=== PATIENT | female | born 1990 | race Hispanic/Latino ===

== ENCOUNTER 2017-03-15 17:43 | Emergency (ER) | payer MEDICAID ==
[2017-03-15 17:59] LABS: APPEARANCE,URINE Clear (CLEAR); BILIRUBIN,URINE Negative (NEGATIVE); COLOR,URINE Yellow (YELLOW); GLUCOSE, URINE (UA) Negative (NEGATIVE); KETONES,URINE Trace mg/dL (NEGATIVE); LEUKOCYTE ESTERASE ,URINE Negative (NEGATIVE); NITRATE,URINE Negative (NEGATIVE); OCCULT BLOOD,URINE Small (NEGATIVE); PROTEIN,URINE Negative (NEGATIVE)
[2017-03-15 18:02] LABS: HCG,QUAL RESULT NEGATIVE (NEGATIVE)
[2017-03-15 18:08] LABS: BACTERIA,URINE Rare /HPF (None Seen); MUCUS,URINE Many LPF (None Seen); RBC,URINE 0-1 /HPF (0-1); WBC,URINE None Seen /HPF (0-1)
[2017-03-15] MEDS ORDERED: KETOROLAC TROMETHAMINE 60 MG/2 ML VIAL ONE (18:29)
[2017-03-15] MEDS ORDERED: DEXAMETHASONE SOD PHOSPHATE 10MG/ML 1ML VIAL ONE (18:29)
== END 2017-03-15 18:48 | disposition home or self-care (01) ==
LOC: EDH 17:43
DX: M54.5 Low back pain (principal); J10.1 Influenza due to other identified influenza virus with other respiratory manifestations; Z98.890 Other specified postprocedural states
CPT/HCPCS: 81001; 81025; 96372 ×2; 99284; J1100; J1885

== ENCOUNTER 2018-01-27 16:48 | Emergency (ER) | payer MEDICAID ==
[2018-01-27 17:10] LABS: APPEARANCE,URINE SL CLOUDY (CLEAR); BILIRUBIN,URINE NEGATIVE (NEGATIVE); COLOR,URINE YELLOW (YELLOW); GLUCOSE, URINE (UA) NEGATIVE (NEGATIVE); KETONES,URINE NEGATIVE (NEGATIVE); LEUKOCYTE ESTERASE ,URINE NEGATIVE (NEGATIVE); NITRATE,URINE NEGATIVE (NEGATIVE); OCCULT BLOOD,URINE SMALL (NEGATIVE); PH,URINE 6.5 (5.0-8.0); PROTEIN,URINE NEGATIVE (NEGATIVE)
[2018-01-27 17:24] LABS: HCG,QUAL RESULT NEGATIVE (NEGATIVE)
[2018-01-27 17:41] LABS: BACTERIA,URINE Few /HPF (None Seen); MUCUS,URINE Few LPF (None Seen); RBC,URINE None Seen /HPF (0-1)
[2018-01-27 17:55] LABS: BASOPHILS % (AUTO) 0.4 % (0.0-5.0); EOSINOPHILS % (AUTO) 0.9 % (0.0-8.0); HEMATOCRIT 37.5 % (36-48); LYMPHOCYTES % (AUTO) 20.2 % (21.0-51.0); MEAN CORPUSCULAR HEMOGLOBIN 28.7 pg (27.0-33.0); MEAN CORPUSCULAR HGB CONC 32.1 g/dL (32.0-36.0); MEAN CORPUSCULAR VOLUME 89.2 fL (79-99); MONOCYTES % (AUTO) 5.3 % (3.0-13.0); NEUTROPHILS % (AUTO) 73.2 % (40.0-77.0); NUCLEATED RED BLOOD CELLS 0.1 % (0.0-0.19); PLATELET COUNT (AUTO) 233 K/uL (130-400); RED BLOOD CELL COUNT(AUTO) 4.21 MIL/uL (4.00-5.50); RED CELL DISTRIBUTION WIDTH 13.9 % (11.0-15.5); WHITE BLOOD COUNT (AUTO) 9.4 K/uL (4.8-10.8)
[2018-01-27 18:06] LABS: CREATININE 0.8 mg/dL (0.5-1.5); POTASSIUM 3.8 mmol/L (3.5-5.1)
[2018-01-27 18:10] LABS: ALBUMIN 3.7 g/dL (3.5-5.0); BILIRUBIN,TOTAL 0.3 mg/dL (0.2-1.0); TOTAL PROTEIN, SERUM 7.4 g/dL (6.0-8.3)
[2018-01-27] MEDS ORDERED: KETOROLAC TROMETHAMINE 30MG/ML ONE (19:08)
== END 2018-01-27 20:00 | disposition home or self-care (01) ==
LOC: EDH 16:48
DX: S39.011A Strain of muscle, fascia and tendon of abdomen, initial encounter (principal); R11.0 Nausea; F41.9 Anxiety disorder, unspecified; Z79.899 Other long term (current) drug therapy; X58.XXXA Exposure to other specified factors, initial encounter; Y93.89 Activity, other specified; Y92.89 Other specified places as the place of occurrence of the external cause; Y99.8 Other external cause status
CPT/HCPCS: 36415; 74176; 80053; 81001; 81025; 83690; 85025; 96372; 99285; J1885

== ENCOUNTER 2019-01-24 17:15 | Emergency (ER) | payer MEDICAID, OTHER ==
[2019-01-24] MEDS ORDERED: IBUPROFEN 600 MG TABLET ONE (18:00)
== END 2019-01-24 18:21 | disposition home or self-care (01) ==
LOC: EDH 17:15
DX: M62.830 Muscle spasm of back (principal); M54.6 Pain in thoracic spine; F41.9 Anxiety disorder, unspecified; V59.50XA Passenger in pick-up truck or van injured in collision with unspecified motor vehicles in traffic accident, initial encounter; Y93.9 Activity, unspecified; Y92.9 Unspecified place or not applicable; Y99.9 Unspecified external cause status

== ENCOUNTER 2019-03-20 16:24 | Emergency (ER) | payer OTHER ==
[2019-03-20 18:53] LABS: APPEARANCE,URINE Clear (CLEAR); BILIRUBIN,URINE Negative (NEGATIVE); COLOR,URINE Yellow (YELLOW); GLUCOSE, URINE (UA) Negative (NEGATIVE); KETONES,URINE Negative (NEGATIVE); LEUKOCYTE ESTERASE ,URINE Moderate (NEGATIVE); NITRATE,URINE Negative (NEGATIVE); OCCULT BLOOD,URINE Small (NEGATIVE); PH,URINE 7.5 (5.0-8.0); PROTEIN,URINE Negative (NEGATIVE)
[2019-03-20 19:13] LABS: HCG,QUAL RESULT NEGATIVE (NEGATIVE)
[2019-03-20 19:16] LABS: BACTERIA,URINE Few /HPF (None Seen)
[2019-03-20] MEDS ORDERED: CEFTRIAXONE SODIUM 1 GM ONE (19:34)
[2019-03-20] MEDS ORDERED: LIDOCAINE HCL-MPF 1% 2ML VIAL ONE (19:34)
== END 2019-03-20 19:58 | disposition home or self-care (01) ==
LOC: EDH 16:24
DX: N39.0 Urinary tract infection, site not specified (principal); F41.9 Anxiety disorder, unspecified; Z90.49 Acquired absence of other specified parts of digestive tract
CPT/HCPCS: 81001; 81025; 96372; 99284; J0696; J3490

== ENCOUNTER 2024-03-08 09:22 | Emergency (ER) | payer BC, MEDICAID ==
[~2024-03-08] VITALS: Ht 157.5 cm; Wt 79.4 kg
[2024-03-08 10:24] LABS: BASOPHILS # (AUTO) 0.02 K/uL (0.00-0.20); BASOPHILS % (AUTO) 0.1 % (0.0-5.0); EOSINOPHILS # (AUTO) 0.14 K/uL (0.00-0.70); HEMATOCRIT 41.4 % (36-48); IMMATURE GRANULOCYTE ABSOLUTE 0.05 K/uL (0-1); LYMPHOCYTES # (AUTO) 0.9 K/uL (1.0-4.8); LYMPHOCYTES % (AUTO) 6.7 % (21.0-51.0); MEAN CORPUSCULAR HGB CONC 31.4 g/dL (32.0-36.0); MEAN CORPUSCULAR VOLUME 89.2 fL (79-99); MONOCYTES # (AUTO) 0.7 K/uL (0.1-1.0); MONOCYTES % (AUTO) 4.9 % (3.0-13.0); NEUTROPHILS % (AUTO) 86.9 % (40.0-77.0); PLATELET COUNT (AUTO) 316 K/uL (130-400); RED BLOOD CELL COUNT(AUTO) 4.64 MIL/uL (4.00-5.50); RED CELL DISTRIBUTION WIDTH 13.1 % (11.0-15.5); WHITE BLOOD COUNT (AUTO) 13.8 K/uL (4.8-10.8)
[2024-03-08 10:44] LABS: CREATININE 0.9 mg/dL (0.5-1.0); POTASSIUM 3.5 mmol/L (3.5-5.1)
[2024-03-08 11:05] LABS: ALBUMIN 3.8 g/dL (3.5-5.0); BILIRUBIN,DIRECT 0.1 mg/dL (0.0-0.3); BILIRUBIN,TOTAL 0.5 mg/dL (0.2-1.0); TOTAL PROTEIN, SERUM 8.2 g/dL (6.0-8.3)
[2024-03-08] MEDS ORDERED: AZIT250T9 PO (12:53)
[2024-03-08] MEDS ORDERED: ONDA-243 PO (12:53)
[2024-03-08] MEDS ORDERED: FAMO-136 PO (12:53)
--- NOTE | 2024-03-08 12:56 | ERN ---
General Chief Complaint: Abdominal Pain Stated Complaint: ABDOMINAL PAIN, VOMITING, DIARRHEA Time Seen by MD: 10:16 Time Seen by Midlevel: 10:16 Source: patient History of Present Illness Initial Comments Patient is a 33-year-old female presenting to the emergency department with diffuse abdominal pain with associated nausea, vomiting, and diarrhea that has been ongoing for the last couple of days. Patient states there was one more family member in her household that is sick with similar symptoms. Denies any fever, chills, or any other symptoms at this time. Denies any bloody stools. Denies any past medical/surgical history. Allergies: Coded Allergies: No Known Drug Allergies (Unverified Allergy, Unknown, 03/20/19) Past Medical History Past Medical History: No Pertinent History Past Surgical History: None Female( History) LMP: Feb 07, 2024 : 4 Para: 3 Aborts: 1 ROS Dictation CONSTITUTIONAL: Negative except for HPI HEAD/FACE: Negative except for HPI EENT: Negative except for HPI RESPIRATORY: Negative except for HPI GASTROINTESTINAL/ABDOMINAL: Negative except for HPI GENITOURINARY: Negative except for HPI MUSCULOSKELETAL: Negative except for HPI INTEGUMENTARY: Negative except for HPI NEUROLOGICAL/PSYCH: Negative except for HPI HEMATOLOGIC/LYMPHATIC: Negative except for HPI All Systems Negative, Except as noted above. 13 point review of systems assessed and all negative except for above. Physical Exam Physical Exam Dictation Vital Signs reviewed General Appearance: Alert, oriented x 3, no acute distress, well developed, nourished. Head and Face: non-traumatic. Eyes: PERRL, pink conjunctivas, eyelid no trauma, anterior chamber with arcus senilis. Ears: Pinnas intact and no signs of trauma or erythema ear canals clear and no discharge TM no erythema Nose: No discharge, no bleeding. Oropharynx: Mouth normal, tongue pink, pharynx clear,no erythema, tonsils no exudates, no abscesses noted, mucous membrane moist Neck: Supple, non-tender, no thyromegaly, no masses, no JVD, no bruits Breast:Deferred Chest:No tenderness, no crepitus, no paradoxical movement, no retractions Lungs:Clear, well-ventilated, symmetric, no rales, no wheezing, no rhonchi, no stridor, good breath sounds bilaterally Heart: Regular rate, regular rhythm, no murmur, no gallops Vascular: no peripheral edema, Abdomen: Soft, positive bowel sounds, nondistended, no guarding, nontender, no rebound, no masses no hepatomegaly, no splenomegaly, no Franks's sign, no hernias. Rectal: Deferred Genital: Deferred Neurological: Normal speech, motor function intact, sensory function intact Musculoskeletal: Neck nontender, full range of motion, back nontender, full range of motion, Extremities: nontender, full range of motion Skin: Color pink, dry, no turgor, no rash, no lacerations, no abrasions, no contusions. Lymphatic: Deferred Results Laboratory and Microbiology Lab and Micro Result Laboratory Tests Test 03/08/24 09:57 White Blood Count 13.8 K/uL (4.8-10.8) H Red Blood Count 4.64 MIL/uL (4.00-5.50) Hemoglobin 13.0 g/dL (12.0-16.0) Hematocrit 41.4 % (36-48) Mean Corpuscular Volume 89.2 fL (79-99) Mean Corpuscular Hemoglobin 28.0 pg (27.0-33.0) Mean Corpuscular Hemoglobin Concent 31.4 g/dL (32.0-36.0) L Red Cell Distribution Width 13.1 % (11.0-15.5) Platelet Count 316 K/uL (130-400) Mean Platelet Volume 10.4 fL (7.5-10.5) Immature Granulocyte % (Auto) 0.4 % (0-1) Neutrophils (%) (Auto) 86.9 % (40.0-77.0) H Lymphocytes (%) (Auto) 6.7 % (21.0-51.0) L Monocytes (%) (Auto) 4.9 % (3.0-13.0) Eosinophils (%) (Auto) 1.0 % (0.0-8.0) Basophils (%) (Auto) 0.1 % (0.0-5.0) Neutrophils # (Auto) 12.0 K/uL (1.8-7.7) H Lymphocytes # (Auto) 0.9 K/uL (1.0-4.8) L Monocytes # (Auto) 0.7 K/uL (0.1-1.0) Eosinophils # (Auto) 0.14 K/uL (0.00-0.70) Basophils # (Auto) 0.02 K/uL (0.00-0.20) Absolute Immature Granulocyte (auto 0.05 K/uL (0-1) Nucleated Red Blood Cells 0.0 % (0.0-0.19) White Cell Morphology Comment See comments Sodium Level 140 mmol/L (136-145) Potassium Level 3.5 mmol/L (3.5-5.1) Chloride Level 104 mmol/L (101-111) Carbon Dioxide Level 28 mmol/L (21-32) Blood Urea Nitrogen 12 mg/dL (7-18) Creatinine 0.9 mg/dL (0.5-1.0) Glomerular Filtration Rate Calc 86 mL/min (>90) Random Glucose 105 mg/dL (70-105) Total Calcium 8.9 mg/dL (8.5-10.1) Total Bilirubin 0.5 mg/dL (0.2-1.0) Direct Bilirubin 0.1 mg/dL (0.0-0.3) Aspartate Amino Transf (AST/SGOT) 12 U/L (10-37) Alanine Aminotransferase (ALT/SGPT) 19 U/L (12-78) Alkaline Phosphatase 90 U/L (50-136) Total Protein 8.2 g/dL (6.0-8.3) Albumin 3.8 g/dL (3.5-5.0) Lipase 27 U/L (16-77) Serum Test, Qualitative NEGATIVE (NEGATIVE) Labs Reviewed?: Yes MDM MDM: Patient is a 33-year-old female presenting to the emergency department with diffuse abdominal pain with associated nausea, vomiting, and diarrhea that has been ongoing for the last couple of days. Patient states there was one more family member in her household that is sick with similar symptoms. Denies any fever, chills, or any other symptoms at this time. Denies any bloody stools. Denies any past medical/surgical history. On physical examination patient is in no acute distress. Her initial vital signs are stable. Patient is afebrile. She does have dry mucous membranes but the remainder of her physical examination is unremarkable. Your CBC [place] [address] however the remainder of her CBC is unremarkable. Chemistries are stable. Symptoms are most likely related to gastroenteritis. Patient was given1 L of IV fluids in the ER along with Zofran and Pepcid he will be discharged home with supportive management. Patient will be discharged home with a prescription for Zofran, Pepcid, and azithromycin. She was to follow up with your PCP in 2-3 da ys for repeat evaluation or return to the ER for any new or worsening symptoms. Differential diagnosis: Dehydration, electrolyte abnormality, gastroenteritis There are no social concerns with this patient. Prescription drug management Prescriptions will include: Zofran, Pepcid, azithromycin Medical management and examination interpretation discussions were had by me with other qualified healthcare professionals as indicated for the patient's care. ED Course Orders Procedure Category Date Status Time Vital Signs Per CPOE 03/08/24 Transmitted Routine 09:41 Saline Lock Iv CPOE 03/08/24 Transmitted 09:41 Cbc With Differential LAB 03/08/24 Complete 09:41 Lipase LAB 03/08/24 Complete 09:41 Urinalysis Profile LAB 03/08/24 Logged 09:41 Basic Metabolic Panel LAB 03/08/24 Complete 09:41 Hepatic Function Panel LAB 03/08/24 Complete 10:31 0.9%Nacl 1000ml (Ns PHA 03/08/24 Complete 1000ml) 11:00 Ondansetron 4mg Inj PHA 03/08/24 Complete (Zofran 4mg Inj) 11:00 Famotidine 20mg Vial PHA 03/08/24 Complete (Pepcid 20mg Vial) 11:00 Testing, LAB 03/08/24 Complete Serum Hcg 10:52 Current Medications Medications (Trade) Dose Ordered Sig/Heather Route PRN Reason Start Time Stop Time Status Last Admin Dose Admin Famotidine (Pepcid 20mg Vial) 20 mg ONCE ONCE IV 03/08/24 11:00 03/08/24 11:01 DC Ondansetron HCl (zoFRAN 4MG INJ) 4 mg ONCE ONCE IVP 03/08/24 11:00 03/08/24 11:01 DC Sodium Chloride 1,000 ml @ 0 mls/hr ONCE ONCE IV 03/08/24 11:00 03/08/24 11:01 DC Vital Signs Date Time Temp Pulse Resp B/P (MAP) Pulse Ox O2 Delivery O2 Flow Rate FiO2 03/08/24 09:38 98.2 94 20 126/82 97 Room Air 0 DX & DISP Disposition: Discharge Departure Impression: Primary Impression: Gastroenteritis Condition: Stable Scripts Azithromycin (Azithromycin) 250 Mg Tablet 1 TAB PO AD for 5 Days, #6 TAB 0 Refills 2 the first day followed by 1 for days 2-5 Prov: ANITA CHINCHILLA 03/08/24 Famotidine (Pepcid) 20 Mg Tablet 1 TAB PO BID for 30 Days, #60 TAB 0 Refills Prov: ANITA CHINCHILLA 03/08/24 Ondansetron (Ondansetron Odt) 4 Mg Tab.rapdis 4 MG PO BID for 7 Days, #14 TAB Prov: ANITA CHINCHILLA 03/08/24 Additional Instructions: Your blood work today is stable. Your gallbladder and liver enzymes are within normal ranges. The remainder of your blood work is unremarkable. Your symptoms are consistent with gastroenteritis. I have given you a prescription for Zofran, Pepcid, and azithromycin which should help improve your symptoms over the next couple of days. Follow up with your primary care doctor in 2-3 days for repeat evaluation. Return to the ER for any new or worsening symptoms. Referrals: ARIANA KELLY MD (PCP) Time of Disposition: 12:51 I have reviewed the case, and I agree with, Diagnosis and Plan I performed the substantive portion of the visit. I have reviewed and personally made and approve the management plan that is documented in the note by myself or the BRIAN. I acknowledge for responsibility for the patient's management plan. ANITA CHINCHILLA Mar 08, 2024 12:56
[2024-03-08] MEDS: 0.9%NACL 1000ML 1,000 ML IV ONE (14:48)
[2024-03-08] MEDS: ondanSETRON 4MG INJ IVP ONE (14:49)
[2024-03-08] MEDS: FAMOTIDINE 20MG VIAL IV ONE (14:49)
[2024-03-08 15:16] VITALS: BP 136/61; PULSE 94; RESP 18; TEMP 98.7; O2SAT 99
== END 2024-03-08 15:19 | disposition home or self-care (01) ==
LOC: EDH 09:22
DX: K52.9 Noninfective gastroenteritis and colitis, unspecified (principal)
CPT/HCPCS: 99284; 96374; 96375; 80076; 80048; 84703; 83690; 85025; 36415; J3490; J7030; J2405

== ENCOUNTER 2024-10-09 23:10 | Emergency (ER) | payer BC ==
[~2024-10-09] VITALS: Ht 157.5 cm; Wt 81.6 kg
[~2024-10-09 23:10] MED LIST: AZIT250T9 PO; FAMO-136 PO; ONDA-243 PO
--- NOTE | 2024-10-09 23:25 | ERN ---
ED Note History of Present Illness Stated Complaint: C/O VAGINAL BLEEDING; 7 WKS Chief Complaint: OB<20 weeks gest. Time Seen by MD: 23:14 Time Seen by Midlevel: 23:14 Dictation: The patient is a 33-year-old female with no past medical history who presents to the emergency department with vaginal bleeding onset prior to arrival. Patient reports she wiped herself and had a little clot. Denies any saturated pads in the last hour. Patient denies any abdominal pain. Denies any nausea or vomitin g or diarrhea. Patient reports being seven weeks . . Patient has not had an established OBGYN. Allergies: Coded Allergies: No Known Drug Allergies (Unverified Allergy, Unknown, 03/20/19) Home Meds Active Scripts Cephalexin Monohydrate (Keflex) 500 Mg Cap, 500 MG PO QID for 7 Days, #28 CAP Prov:SAL BAGLEY [employer] 10/10/24 Azithromycin (Azithromycin) 250 Mg Tablet, 1 TAB PO AD for 5 Days, #6 TAB 0 Refills 2 the first day followed by 1 for days 2-5 Prov:ANITA CHINCHILLA 03/08/24 Famotidine (Pepcid) 20 Mg Tablet, 1 TAB PO BID for 30 Days, #60 TAB 0 Refills Prov:ANITA CHINCHILLA 03/08/24 Ondansetron (Ondansetron Odt) 4 Mg Tab.rapdis, 4 MG PO BID for 7 Days, #14 TAB Prov:ANITA CHINCHILLA 03/08/24 Past Medical History Past Medical History: No Pertinent History Surgical History: None LMP: Aug 26, 2024 : 4 Para: 3 Aborts: 0 RN Note Reviewed/Agreed w/PFSH: Yes Review of System Dictation Constitutional: Negative for fever,chills, and weight loss Eyes: Negative for injury, pain,redness, and discharge ENT: Negative for injury,pain or swelling Cardiovascular: Negative for chest pain, palpitations, and edema Respiratory: Negative for shortness of breath, cough, and wheezing, Abdomen/GI: Negative for abdominal pain, nausea, vomiting, diarrhea, and constipation Back: Negative for injury and pain : Negative for injury, and discharge positive for vaginal bleeding MS/Extremity: Negative for injury and deformity Skin: Negative for rash, and discoloration Neuro: Negative for headache, weakness, numbness, tingling, and seizure Psych: Negative for suicide ideation, homicidal ideation, and hallucinations Initial Vital Sign VS Vital Signs Date Time Temp Pulse Resp B/P (MAP) Pulse Ox O2 Delivery O2 Flow Rate FiO2 10/09/24 23:11 98.4 70 20 127/68 98 Room Air 10/09/24 23:20 0 21 Physical Exam Dictation Vital Signs reviewed General Appearance: Alert, oriented x 3, no acute distress, well developed, nourished. Head and Face: non-traumatic. Eyes: PERRL, pink conjunctivas, eyelid no trauma, anterior chamber with arcus senilis. Ears: Pinnas intact and no signs of trauma or erythema ear canals clear and no discharge TM no erythema Nose: No discharge, no bleeding. Oropharynx: Mouth normal, tongue pink. pharynx clear,no erythema, tonsils no exudates, no abscesses noted, mucous membrane moist Neck: Supple, non-tender, no thyromegaly, no masses, no JVD, no bruits Breast:Deferred Chest:No tenderness, no crepitus, no paradoxical movement, no retractions Lungs:Clear, well-ventilated, symmetric, no rales, no wheezing, no rhonchi, no stridor, good breath sounds bilaterally Heart: Regular rate, regular rhythm, no murmur, no gallops Vascular: no peripheral edema, Abdomen: Soft, positive bowel sounds, nondistended, no guarding, nontender, no rebound, no masses no hepatomegaly, no splenomegaly, no Franks's sign, no hernias. Rectal: Deferred Genital: Deferred Neurological: Normal speech, motor function intact, sensory function intact Musculoskeletal: Neck nontender, full range of motion, back nontender, full range of motion, Extremities: nontender, full range of motion Skin: Color pink, dry, no turgor, no rash, no lacerations, no abrasions, no contusions. Lymphatic: Deferred Results (Laboratory/Radiology) Laboratory/Radiology Laboratory Tests Test 10/09/24 23:31 10/09/24 23:32 Urine Color YELLOW (YELLOW) Urine Appearance CLEAR (CLEAR) Urine pH 6.0 (5.0-8.0) Urine Specific [place] 1.025 (1.001-1.031) Urine Protein NEGATIVE mg/dL (NEGATIVE) Urine Glucose (UA) NEGATIVE mg/dL (NEGATIVE) Urine Ketones NEGATIVE mg/dL (NEGATIVE) Urine Occult Blood MODERATE (NEGATIVE) H Urine Nitrate NEGATIVE (NEGATIVE) Urine Bilirubin NEGATIVE mg/dL (NEGATIVE) Urine Urobilinogen 3 mg/dL (0.2-1.0) H Urine Leukocyte Esterase 75 Shaheen/uL (NEGATIVE) H Urine RBC 11-25 /HPF (0-1) H Urine WBC 2-5 /HPF (0-1) H Urine Squamous Epithelial Cells MANY /HPF (0-2) Urine Bacteria RARE /HPF (None Seen) White Blood Count 11.2 K/uL (4.8-10.8) H Red Blood Count 4.14 MIL/uL (4.00-5.50) Hemoglobin 12.0 g/dL (12.0-16.0) Hematocrit 37.5 % (36-48) Mean Corpuscular Volume 90.6 fL (79-99) Mean Corpuscular Hemoglobin 29.0 pg (27.0-33.0) Mean Corpuscular Hemoglobin Concent 32.0 g/dL (32.0-36.0) Red Cell Distribution Width 13.2 % (11.0-15.5) Platelet Count 261 K/uL (130-400) Mean Platelet Volume 10.4 fL (7.5-10.5) Immature Granulocyte % (Auto) 0.5 % (0-1) Neutrophils (%) (Auto) 74.5 % (40.0-77.0) Lymphocytes (%) (Auto) 17.8 % (21.0-51.0) L Monocytes (%) (Auto) 5.3 % (3.0-13.0) Eosinophils (%) (Auto) 1.5 % (0.0-8.0) Basophils (%) (Auto) 0.4 % (0.0-5.0) Neutrophils # (Auto) 8.3 K/uL (1.8-7.7) H Lymphocytes # (Auto) 2.0 K/uL (1.0-4.8) Monocytes # (Auto) 0.6 K/uL (0.1-1.0) Eosinophils # (Auto) 0.17 K/uL (0.00-0.70) Basophils # (Auto) 0.04 K/uL (0.00-0.20) Absolute Immature Granulocyte (auto 0.06 K/uL (0-1) Nucleated Red Blood Cells 0.0 % (0.0-0.19) Sodium Level 138 mmol/L (136-145) Potassium Level 3.5 mmol/L (3.5-5.1) Chloride Level 102 mmol/L (101-111) Carbon Dioxide Level 29 mmol/L (21-32) Blood Urea Nitrogen 8 mg/dL (7-18) Creatinine 0.6 mg/dL (0.5-1.0) Glomerular Filtration Rate Calc 121 mL/min (>90) Random Glucose 121 mg/dL (70-105) H Total Calcium 9.0 mg/dL (8.5-10.1) Human Chorionic Gonadotropin, Quant 69724 mIU/mL (0-5) H REASON: VAGINAL BLEEDING ORDERING PHYSICIAN: SAL BAGLEY PROCEDURE: OB <14 - US OB <14 WEEKS EXAM: US Obstetrical, Complete <14 weeks CLINICAL HISTORY: Vaginal bleeding. TECHNIQUE: Transabdominal imaging of the maternal pelvis and a <14 week gestation with image documentation. COMPARISON: None provided. FINDINGS: The uterus measures 8.9 x 5.7 x 6.9 cm. There is a questionable gestational sac-like structure within the endometrial cavity that measures 1.57 cm in diameter, which corresponds with a gestational age of 5 weeks and 0 days. The pole, yolk sac, and cardiac activity are not appreciated at present. The right ovary measures 2.4 x 1.3 x 1.8 cm. The left ovary measures 1.9 x 1.5 x 2 cm. Normal flow in the bilateral ovaries. No fluid in the cul-de-sac. Possible Nabothian cervical cysts, measuring about 1.2 x 1.1 x 1.3 cm and 1.2 x 1.0 x 1.0 cm. IMPRESSION: There is a questionable gestational sac-like structure within the endometrial cavity without pole, yolk sac, or cardiac activity are present. Recommend serial quantitative beta-hCG and short interval follow-up. /[facility] Labs Reviewed?: Yes ED Course ED Course Orders Procedure Category Date Status Time Cbc With Differential LAB 10/09/24 Complete 23:18 Hcg,Quantitative LAB 10/09/24 Complete 23:18 Us Ob <14 Weeks US 10/09/24 Resulted 23:18 0.9%Nacl 1000ml (Ns PHA 10/09/24 Complete 1000ml) 23:30 Basic Metabolic Panel LAB 10/09/24 Complete 23:18 Urinalysis Profile LAB 10/09/24 Complete 23:18 Abo/Rh BBK 10/09/24 Complete 23:18 Culture Urine THOMAS 10/10/24 In Process 00:09 Ceftriaxone 1g Vial PHA 10/10/24 Complete (Rocephine 1g Inj) 00:30 Current Medications Medications (Trade) Dose Ordered Sig/Heather Route PRN Reason Start Time Stop Time Status Last Admin Dose Admin Ceftriaxone Sodium (ROCEphine 1G INJ) 1 gm ONCE ONCE IVPB 10/10/24 00:30 10/10/24 00:31 DC 10/10/24 01:19 Sodium Chloride 1,000 ml @ 0 mls/hr ONCE ONCE IV 10/09/24 23:30 10/09/24 23:31 DC 10/09/24 23:54 Vital Signs Date Time Temp Pulse Resp B/P (MAP) Pulse Ox O2 Delivery O2 Flow Rate FiO2 10/09/24 23:20 98.1 79 16 106/64 98 Room Air* 0 21 10/09/24 23:11 98.4 70 20 127/68 98 Room Air Medical Decision Making MDM The patient is a 33-year-old female with no past medical history who presents to the emergency department with vaginal bleeding onset prior to arrival. Patient reports she wiped herself and had a little clot. Denies any saturated pads in the last hour. Patient denies any abdominal pain. Denies any nausea or vomiting or diarrhea. Patient reports being seven weeks . . Patient has not had an established OBGYN. CBC showed mild leukocytosis, no anemia, chemistry showed no electrolyte imbalance, hCG showed 68580 level, urinalysis positive for leukocyte esterase. Patient was giving a dose of Rocephin and will be discharged on antibiotics. Ultrasound revealed questionable gestational sac like structure in the endometrial cavity without pole yolk sac or cardiac activity present. Could be too early in but imaging and labs discussed with the patient she will need follow up hCG levels an ultrasound. Patient currently not having any abdominal pain. Minimal spotting without any pads saturated in the last 2 hours. On physical exam patient is in no acute distress. Stable vital signs. We will be discharged to follow up with PCP. Patient instructed to return if she develops severe bleeding or symptoms worsen. Differential diagnosis: Threatening , subchorionic hemorrhage, UTI, electrolyte imbalance, Need for hospitalization: Patient does not meet criteria for hospitalization. There are no social concerns with this patient. DX & DISP Disposition: Discharge Departure Impression: Primary Impression: Positive test Additional Impressions: UTI (urinary tract infection), Vaginal bleeding Condition: Stable Scripts Cephalexin Monohydrate (Keflex) 500 Mg Cap 500 MG PO QID for 7 Days, #28 CAP Prov: YUDISAL DALEY 10/10/24 Additional Instructions: You have a urinary tract infection periods please take your antibiotics as prescribed. The rest of your lasts were unremarkable. You will need to follow up with OBGYN and they need to continue monitoring your hCG level and ultrasound. If anything worsens please return to ER. FOLLOW-UP WITH PRIMARY CARE PROVIDER IN 1 TO 2 DAYS. TAKE MEDICATIONS DIRECTED HERE IN THE EMERGENCY ROOM. OKAY TO CONTINUE HOME MEDICATIONS UNLESS OTHERWISE DISCUSSED DURING YOUR VISIT IN THE EMERGENCY ROOM TODAY. RETURN TO YOUR NEAREST EMERGENCY ROOM IF SYMPTOMS WORSEN OR IF THERE IS NO IMPROVEMENT. CALL 911 IF YOU NEED IMMEDIATE ASSISTANCE. TAKE TYLENOL [id number] NEEDED AND IF NO CONTRAINDICATIONS ARE PRESENT. INCREASE ORAL HYDRATION. A WOUND CULTURE OR URINE CULTURE WAS ORDERED HERE IN THE EMERGENCY ROOM DEPARTMENT PLEASE FOLLOW-UP WITH PRIMARY CARE PROVIDER AND ADVISE THEM TO GET REPEAT PORTS FROM OUR FACILITY. IF YOU HAD ANY [place]AN[place]H WRAP/SPLINTS THAT WERE APPLIED HERE, PLEASE DO NOT REMOVE THEM UNTIL YOU SEE YOUR PRIMARY CARE OR SPECIALTY. Referrals: ARIANA KELLY MD (PCP) COSMO QUICK MD Time of Disposition: 01:42 I have reviewed the case, and I agree with, Diagnosis and Plan SAL BAGLEY Oct 09, 2024 23:25
[2024-10-09] MEDS: 0.9%NACL 1000ML 1,000 ML IV ONE (23:54)
[2024-10-09 23:57] LABS: IMMATURE GRANULOCYTE ABSOLUTE 0.06 K/uL (0-1); NUCLEATED RED BLOOD CELLS 0.0 % (0.0-0.19); PLATELET COUNT (AUTO) 261 K/uL (130-400); RED BLOOD CELL COUNT(AUTO) 4.14 MIL/uL (4.00-5.50); RED CELL DISTRIBUTION WIDTH 13.2 % (11.0-15.5); WHITE BLOOD COUNT (AUTO) 11.2 K/uL (4.8-10.8)
[2024-10-10 00:07] LABS: CREATININE 0.6 mg/dL (0.5-1.0); GLOMERULAR FILTR. RATE CALC 121.0 mL/min (>90); GLUCOSE,RANDOM 121.0 mg/dL (70-105); SODIUM SERUM 138.0 mmol/L (136-145); UREA NITROGEN, BLOOD 8.0 mg/dL (7-18)
[2024-10-10 00:08] LABS: APPEARANCE,URINE CLEAR (CLEAR); GLUCOSE, URINE (UA) NEGATIVE (NEGATIVE); LEUKOCYTE ESTERASE ,URINE 75 Leu/uL (NEGATIVE); NITRATE,URINE NEGATIVE (NEGATIVE); OCCULT BLOOD,URINE MODERATE (NEGATIVE)
[2024-10-10 00:09] LABS: ADD UA MICROSCOPIC YES
[2024-10-10 00:11] LABS: SQUAMOUS EPITHELIAL CELL,UR MANY /HPF (0-2)
[2024-10-10 00:34] LABS: HCG,QUANTITATIVE 36734.0 mIU/mL (0-5)
--- NOTE | 2024-10-10 01:25 | HMCIMG ---
EXAM: US Obstetrical, Complete <14 weeks CLINICAL HISTORY: Vaginal bleeding. TECHNIQUE: Transabdominal imaging of the maternal pelvis and a <14 week gestation with image documentation. COMPARISON: None provided. FINDINGS: The uterus measures 8.9 x 5.7 x 6.9 cm. There is a questionable gestational sac-like structure within the endometrial cavity that measures 1.57 cm in diameter, which corresponds with a gestational age of 5 weeks and 0 days. The pole, yolk sac, and cardiac activity are not appreciated at present. The right ovary measures 2.4 x 1.3 x 1.8 cm. The left ovary measures 1.9 x 1.5 x 2 cm. Normal flow in the bilateral ovaries. No fluid in the cul-de-sac. Possible Nabothian cervical cysts, measuring about 1.2 x 1.1 x 1.3 cm and 1.2 x 1.0 x 1.0 cm. IMPRESSION: There is a questionable gestational sac-like structure within the endometrial cavity without pole, yolk sac, or cardiac activity are present. Recommend serial quantitative beta-hCG and short interval follow-up. /[place]
[2024-10-10] MEDS ORDERED: CEPH500B PO (01:43)
[2024-10-10 02:18] VITALS: BP 96/69; PULSE 66; RESP 15; TEMP 98.5; O2SAT 100
== END 2024-10-10 02:32 | disposition home or self-care (01) ==
LOC: EDH 23:10
DX: O23.41 Unspecified infection of urinary tract in pregnancy, first trimester (principal); N39.0 Urinary tract infection, site not specified; O20.9 Hemorrhage in early pregnancy, unspecified; O26.891 Other specified pregnancy related conditions, first trimester; R10.2 Pelvic and perineal pain; Z3A.01 Less than 8 weeks gestation of pregnancy
CPT/HCPCS: 99284; 76801; 96361; 80048; 84702; 85025; 86900; 86901; 87086; 81001; 36415; 96365; J7030; J0696